=== PATIENT | female | born 1980 | race Caucasian/White ===

== ENCOUNTER 2018-10-23 14:44 | Outpatient (CLI) | payer OTHER ==
[~2018-10-23 14:44] MED LIST: BUPIVACAINE HCL 0.5% (5MG/ML) PF 10ML VIAL IV ONE; Lidocaine 1% 5ml 10 MG/ML VIAL ONE; TRIAMCINOLONE ACETONID 40MG/ML VIAL ONE
== END 2018-10-23 15:10 | disposition home or self-care (01) ==
LOC: OUT 14:44
PROVIDERS: ATTEND Physical Medicine & Rehabilitation
DX: M70.61 Trochanteric bursitis, right hip (principal); M70.62 Trochanteric bursitis, left hip
CPT/HCPCS: 20610; J3301; J3490